=== PATIENT | female | born 1950 | race Two or more races ===

== ENCOUNTER 2016-06-01 19:59 | Emergency (ER) | payer BC ==
[~2016-06-01] VITALS: Ht 157.5 cm; Wt 72.6 kg
[~2016-06-01 19:59] MED LIST: AMLODIPINE BESY10 MG ORAL; CIPRO500 MG PO; GABAPENTIN300 MG ORAL; IBUPROFEN600 MG PO; PHENAZOPYRIDIN200 MG ORAL; TRAMADOL HCL50 MG ORAL
[2016-06-01] MEDS ORDERED: CYCLOBENZAPRINE10 MG ORAL (20:39)
[2016-06-01] MEDS ORDERED: TYLENOL EXTRA500 MG ORAL (20:39)
[2016-06-01] MEDS ORDERED: Ketorolac 30mg Inj IM ONE (20:45)
[2016-06-01] MEDS ORDERED: Cyclobenzaprine 10mg Tab ORAL ONE (20:45)
[2016-06-01 21:32] VITALS: BP 203/99
[2016-06-01 21:37] VITALS: BP 203/99
--- NOTE | 2016-06-02 05:07 | Emergency Room Report ---
History of Present Illness General Chief Complaint: Back Pain-No Injury Source: Patient Present Illness HPI 66-year-old female presents ED complaining of back pain. Pain for the last 3 days. Denies any injury. Notes pain radiating from the right shoulder down to her lower back. Pain as throbbing, 12/01. No other aggravating relieving factors. Denies chest pain or shortness of breath. Notes previous history of back pain. Denies any other associated symptoms Allergies: Coded Allergies: CODEINE (Verified Allergy, Unknown, 03/24/10) Patient History Past Medical History: HTN, GERD Past Surgical History: none Pertinent Family History: none Social History: Denies: alcohol use, drug use, smoking Now: No Immunizations: UTD Reviewed Nursing Documentation: PMH: Agreed, PSxH: Agreed Nursing Documentation-PMH Hx Hypertension: Yes Hx Gastrointestinal Problems: Yes - GERD Hx Neurological Problems: Yes - chronic left ear pain Review of Systems All Other Systems: negative except mentioned in HPI Physical Exam Vital Signs Date Time Temp Pulse Resp B/P Pulse Ox O2 Delivery O2 Flow Rate FiO2 06/01/16 20:18 98.1 87 18 206/109 96 Sp02 EP Interpretation: reviewed, normal General Appearance: no apparent distress, alert, GCS 15, non-toxic Head: normocephalic Eyes: bilateral eye PERRL, bilateral eye normal inspection ENT: hearing grossly normal Neck: full range of motion, supple/symm/no masses Respiratory: chest non-tender, lungs clear, normal breath sounds, speaking full sentences Cardiovascular #1: regular rate, rhythm, no edema Gastrointestinal: normal bowel sounds, non tender, soft, non-distended, no guarding, no rebound Rectal: deferred Genitourinary: no CVA tenderness, no vertebral tenderness Musculoskeletal: normal inspection, other - paraspinal tenderness Neurologic: alert, oriented x3, responsive, motor strength/tone normal, sensory intact, speech normal Psychiatric: normal inspection Skin: normal inspection Lymphatic: normal inspection Medical Decision Making Diagnostic Impression: Primary Impression: Back strain Qualified Codes: S39.012A - Strain of muscle, fascia and tendon of lower back , initial encounter ER Course Hospital Course 66-year-old female presents ED complaining of mid and lower back pain. No evidence of trauma Differential diagnoses include: pyelonephritis, kidney stone, muscle strain, Lspine fracture Clinical course Patient placed on stretcher. After initial history and physical I ordered toradol and flexeril for pain. Upon reassessment patient states pain has improved. Upon review of EMR, patient does not have any visits to ED requesting pain medications. Diagnosis - back pain Stable and discharged to home with prescription for tylenol, Flexeril. Followup with PMD. Return to ED if symptoms recur or worsen Last Vital Signs Date Time Temp Pulse Resp B/P Pulse Ox O2 Delivery O2 Flow Rate FiO2 06/01/16 21:37 98.3 80 14 203/99 97 Status: improved Disposition: HOME, SELF-CARE Condition: Stable Scripts Cyclobenzaprine Hcl* (FLEXERIL*) 10 Mg Tablet 10 MG ORAL TID Y for Muscle Spasm, #20 TAB Prov: GUZMAN CAMPOVERDE M.D. 06/01/16 Acetaminophen* (TYLENOL EXTRA STRENGTH*) 500 Mg Tablet 500 MG ORAL Q8H Y for Prn Headache/Temp > 101, #30 TAB 0 Refills Prov: GUZMAN CAMPOVERDE M.D. 06/01/16 Referrals: [facility],REFERRING (PCP) Patient Instructions: Back Pain, Adult GUZMAN CAMPOVERDE M.D. Jun 02, 2016 05:07
== END 2016-06-01 21:37 | disposition home or self-care (01) ==
LOC: EMR 20:49
DX: S39.012A Strain of muscle, fascia and tendon of lower back, initial encounter (principal); Z88.6 Allergy status to analgesic agent; I10 Essential (primary) hypertension; K21.9 Gastro-esophageal reflux disease without esophagitis; X58.XXXA Exposure to other specified factors, initial encounter; Y92.9 Unspecified place or not applicable; Y99.8 Other external cause status
CPT/HCPCS: 96372; 99283; J1885

== ENCOUNTER 2016-11-20 10:44 | Emergency (ER) | payer BC ==
[~2016-11-20] VITALS: Ht 160 cm; Wt 74.8 kg
[~2016-11-20 10:44] MED LIST changes: +CYCLOBENZAPRINE10 MG ORAL; +TYLENOL EXTRA500 MG ORAL
[2016-11-20] MEDS ORDERED: HYDROCHLOROTH12.5 M2 ORAL (10:58)
[2016-11-20] MEDS ORDERED: Ketorolac 30mg Inj IV ONE (11:15)
[2016-11-20] MEDS ORDERED: DiphenhydrAMINE 50mg/ml Inj IVP ONE (11:15)
[2016-11-20] MEDS ORDERED: Morphine Sulfate 4mg/ml Inj IVP ONE (11:15)
[2016-11-20] MEDS ORDERED: Tubing IV Cassette IV ONE (11:25)
[2016-11-20 11:53] LABS: BASOPHILS % (AUTO) 1.3 % (0.0-2.0); EOSINOPHILS % (AUTO) 0.7 % (0.0-3.0); LYMPHOCYTES % (AUTO) 23.5 % (20.0-45.0); MEAN CORPUSCULAR HEMOGLOBIN 29.2 PG (27.0-31.0); MEAN CORPUSCULAR HGB CONC 33.4 G/DL (32.0-36.0); MEAN CORPUSCULAR VOLUME 88 FL (80-99); MONOCYTES % (AUTO) 5.5 % (1.0-10.0); PLATELET COUNT 207 K/UL (150-450); RED CELL DISTRIBUTION WIDTH 11.9 % (11.6-14.8); WHITE BLOOD COUNT 6.7 K/UL (4.8-10.8)
[2016-11-20 12:04] LABS: INR 0.9 (0.9-1.1); PROTHROMBIN TIME 9.9 SEC (9.30-11.50)
[2016-11-20 12:14] LABS: ALANINE AMINOTRANSFERASE 19 U/L (3-33); ALBUMIN/GLOBULIN RATIO 1.3 (1.0-2.7); ANION GAP 18 (5-15); ASPARTATE AMINO TRANSFERASE 18 U/L (5-40); CALCIUM 9.5 mg/dL (8.6-10.2); CARBON DIOXIDE 26 mEQ/L (20-30); CHLORIDE 96 mEQ/L (98-107); CREATININE 0.6 mg/dL (0.5-0.9); GLOMERULAR FILTRATION RATE > 60 mL/min (>60); HEMOLYSIS 5; LIPASE 38 U/L (< 60); POTASSIUM 3.4 mEQ/L (3.4-4.9); SODIUM 140 mEQ/L (135-145); TOTAL PROTEIN 7.8 g/dL (6.6-8.7)
[2016-11-20 12:30] VITALS: BP 157/63
--- NOTE | 2016-11-20 12:44 | Diagnostic Imaging Report ---
Indication: PAIN Technique: Spiral acquisitions obtained through the abdomen and pelvis. No oral contrast utilized, per emergency room physician request No IV contrast utilized, per referring physician request left lower quadrant abdominal pain radiating to left leg. Multiplanar reconstructions were generated. Total dose length product 916 mGycm. CTDIvol(s) mGy. Dose reduction achieved using automated exposure control Comparison: None Findings: There is left inguinal hernia. This appears to be posterior lateral to the inferior epigastric vessels so is probably a direct inguinal hernia. It contains a knuckle of small bowel. Small bowel proximal to the hernia is mildly dilated and fluid-filled. Small bowel distal to the hernia is collapsed. There is a fluid collection within the hernia that is contiguous with the small bowel. Uncertain as to whether this is part of small bowel or separate from it. Within this collection there is a calcification which measures 17 mm in length. The collection itself measures approximately 4.4 x 3 cm. There is an inguinal hernia on the right which also appears to be medial to the inferior epigastric vessels and is therefore probably direct. It contains a 17 mm diameter fluid collection and also a much smaller calcification which is nonetheless similar to the one on the left side. This calcification measures about 7 mm long axis dimension. There is colonic diverticulosis. No evidence of diverticulitis. The appendix is not definitely demonstrated, but there are no findings to suggest acute appendicitis. No free or loculated intraperitoneal air or, with the exception of the inguinal abnormalities. Lack of IV contrast limits assessment of solid organs. The liver is diffusely hypoattenuating, consistent with fatty change. An area of focal sparing is seen adjacent to the gallbladder fossa. No other focal abnormality is demonstrated. The gallbladder, bile ducts, pancreas, spleen, adrenals are unremarkable. The left kidney demonstrates a 5.5 cm exophytic cyst. Multiple intrarenal calyceal calculi are seen bilaterally. The right kidney demonstrates an upper pole subcentimeter low-attenuation lesion which is too small to characterize. No ureteral calculi, hydronephrosis, or hydroureter demonstrated. No pelvic mass or adenopathy. The included lung bases demonstrate some posterior dependent atelectatic changes. Mild degenerative changes of the lumbar spine are incidentally noted. Impression: Positive for left inguinal hernia, probably a direct type, containing a knuckle of small bowel. There is mild distention of the small bowel proximal to it and collapse of the small bowel distal to it, consistent with mild small bowel obstruction from the hernia. Also present within the hernia sac is a 4.4 cm fluid collection. Uncertain as to whether this is related to the bowel or separate from it although suspect the latter. Inside the fluid collection is very unusual 17 mm long calcification. Significance/etiology of these findings are uncertain. There is a right presumed direct inguinal which does not contain any bowel. It does contain fat and a small fluid collection which appears similar to the fluid collection on the left. This fluid collection contains a calcification which is similar to the calcification on the left. Etiology/significance likewise uncertain Diverticulosis. No evidence of diverticulitis Fatty liver. Small area of focal sparing noted Bilateral nonobstructive intrarenal calculi 5.5 cm left renal cyst. Subcentimeter upper pole right renal low-attenuation lesion, too small to characterize. Most likely benign simple cysts. No further followup necessary Incidental findings as described The CT scanner at [facility] is accredited by the [employer] and the scans are performed using protocols designed to limit radiation exposure to as low as reasonably achievable to attain i -- mages of sufficient resolution adequate for diagnostic evaluation.
[2016-11-20 12:52] LABS: APPEARANCE,URINE CLEAR; KETONES,URINE 1+ (NEGATIVE); LEUKOCYTE ESTERASE ,URINE NEGATIVE (NEGATIVE); NITRITE,URINE NEGATIVE (NEGATIVE); PH,URINE 8 (4.5-8.0); PROTEIN,URINE NEGATIVE (NEGATIVE); UROBILINOGEN,URINE NORMAL MG/DL (0.0-1.0)
--- NOTE | 2016-11-20 13:51 | Emergency Room Report ---
History of Present Illness General Chief Complaint: Abdominal Pain Source: Patient, Medical Record Present Illness HPI Patient has a history kidney stones. Patient presents emergency department today complaining of acute onset of severe left lower quadrant abdominal pain associate nausea. Patient states the pain started over last 24 hours. She denies any fever chest pain short of breath. Denies rectal bleeding or diarrhea. Patient denies any dysuria or frequency or hematuria. Symptoms noted to be severe. No other modifying factors. No other associated signs and symptoms. No other complaints were noted. Allergies: Coded Allergies: CODEINE (Verified Allergy, Unknown, 03/24/10) Patient History Past Medical History: HTN, other - Gerd PMH Narrative kidney stone Past Surgical History: none Pertinent Family History: none Social History: Denies: alcohol use, drug use, smoking Last Menstrual Period: menopause Now: No : 2 Para: 2 Reviewed Nursing Documentation: PMH: Agreed, PSxH: Agreed Nursing Documentation-PMH Past Medical History: No History, Except For Hx Hypertension: Yes Hx Gastrointestinal Problems: Yes - GERD Hx Neurological Problems: Yes - chronic left ear pain Review of Systems All Other Systems: negative except mentioned in HPI Physical Exam Vital Signs Date Time Temp Pulse Resp B/P Pulse Ox O2 Delivery O2 Flow Rate FiO2 11/20/16 10:54 98.2 94 16 184/83 100 Room Air Sp02 EP Interpretation: reviewed, normal General Appearance: alert, moderate distress Head: atraumatic Eyes: bilateral eye normal inspection ENT: normal ENT inspection, hearing grossly normal, normal voice Neck: normal inspection, full range of motion, supple, no bony tend Respiratory: normal inspection, lungs clear, normal breath sounds, no respiratory distress, no retraction, no wheezing Cardiovascular #1: regular rate, rhythm, no edema Gastrointestinal: normal inspection, normal bowel sounds, soft, no guarding, no hernia, other - left lower quadrant and inguinal area Genitourinary: no CVA tenderness Musculoskeletal: normal inspection, back normal, normal range of motion Neurologic: normal inspection, alert, responsive, speech normal Psychiatric: anxious Skin: normal inspection, normal color, no rash Medical Decision Making Diagnostic Impression: Primary Impression: Inguinal hernia of left side with obstruction ER Course Patient presents emergency department today complaining of abdominal pain.Patient presents to the emergency department today complaining of abdominal pain. Differential considerations include acute pancreatitis, cholecystitis, gastritis, hepatitis, l colitis or kidney stone just to name a few. Given the severity of the patient's presentation I felt this is a highly complex patient. This patient required extensive workup. Patient's CT shows evidence of a hernia. On the left inguinal area. Patient required an attempt at reduction. Procedure note: Using pressure with patient and recombinant position Trendelenburg. Gentle pressure was applied to patient's left groin. I was able to reduce much of the hernia. However there still remains evidence of left Swelling despite my attempts. Patient tolerated procedure without difficulty. No other complaints are noted. No complications were noted. Patient symptoms and CT scan findings were concerning and patient will require admission. Case was discussed with Dr. Hany Hyman who is service correspondent for patient's medical group. Case was also discussed with Dr. Candelario Torres from general surgery who will evaluate the patient for hernia repair. Patient will be admitted to [facility] further treatment. Labs Test 11/20/16 11:20 11/20/16 12:45 White Blood Count 6.7 K/UL (4.8-10.8) Red Blood Count 5.10 M/UL (4.20-5.40) Hemoglobin 14.9 G/DL (12.0-16.0) Hematocrit 44.6 % (37.0-47.0) Mean Corpuscular Volume 88 FL (80-99) Mean Corpuscular Hemoglobin 29.2 PG (27.0-31.0) Mean Corpuscular Hemoglobin Concent 33.4 G/DL (32.0-36.0) Red Cell Distribution Width 11.9 % (11.6-14.8) Platelet Count 207 K/UL (150-450) Mean Platelet Volume 8.0 FL (6.5-10.1) Neutrophils (%) (Auto) 69.0 % (45.0-75.0) Lymphocytes (%) (Auto) 23.5 % (20.0-45.0) Monocytes (%) (Auto) 5.5 % (1.0-10.0) Eosinophils (%) (Auto) 0.7 % (0.0-3.0) Basophils (%) (Auto) 1.3 % (0.0-2.0) Prothrombin Time 9.9 SEC (9.30-11.50) Prothromb Time International Ratio 0.9 (0.9-1.1) Activated Partial Thromboplast Time 25 SEC (23-33) Sodium Level 140 mEQ/L (135-145) Potassium Level 3.4 mEQ/L (3.4-4.9) Chloride Level 96 mEQ/L (98-107) Carbon Dioxide Level 26 mEQ/L (20-30) Anion Gap 18 (5-15) Blood Urea Nitrogen 11 mg/dL (7-23) Creatinine 0.6 mg/dL (0.5-0.9) Estimat Glomerular Filtration Rate > 60 mL/min (>60) Glucose Level 164 mg/dL (74-106) Calcium Level 9.5 mg/dL (8.6-10.2) Total Bilirubin 0.6 mg/dL (0.0-1.2) Aspartate Amino Transf (AST/SGOT) 18 U/L (5-40) Alanine Aminotransferase (ALT/SGPT) 19 U/L (3-33) Alkaline Phosphatase 110 U/L (35-104) Total Protein 7.8 g/dL (6.6-8.7) Albumin 4.5 g/dL (3.5-5.2) Globulin 3.3 g/dL Albumin/Globulin Ratio 1.3 (1.0-2.7) Lipase 38 U/L (< 60) Urine Color Pale yellow Urine Appearance Clear Urine pH 8 (4.5-8.0) Urine Specific [place] 1.020 (1.005-1.035) Urine Protein Negative (NEGATIVE) Urine Glucose (UA) Negative (NEGATIVE) Urine Ketones 1+ (NEGATIVE) Urine Occult Blood Negative (NEGATIVE) Urine Nitrite Negative (NEGATIVE) Urine Bilirubin Negative (NEGATIVE) Urine Urobilinogen Normal MG/DL (0.0-1.0) Urine Leukocyte Esterase Negative (NEGATIVE) Last Vital Signs Date Time Temp Pulse Resp B/P Pulse Ox O2 Delivery O2 Flow Rate FiO2 11/20/16 12:30 75 18 157/63 97 Room Air 11/20/16 12:00 98.3 Status: improved Disposition: ADMITTED INPATIENT Condition: Serious Referrals: [facility],REFERRING (PCP) JAVID SARABIA M.D. Nov 20, 2016 13:51
[2016-11-20 14:00] VITALS: BP 140/64
[2016-11-20 16:00] VITALS: BP 140/65
--- NOTE | 2016-11-20 16:42 | Diagnostic Imaging Report ---
Indication: COUGH Technique: One view of the chest Comparison: 03/23/2010 Findings: Lungs and pleural spaces are clear. Heart size is normal. Aorta is tortuous and calcified. No significant change Impression: No acute process
[2016-11-20] MEDS ORDERED: Morphine Sulfate 4mg/ml Inj IVP PRN (17:00)
[2016-11-20] MEDS ORDERED: Morphine Sulfate 2mg/ml Inj IVP PRN (17:00)
[2016-11-20] MEDS ORDERED: TRAMADOL HCL50 MG ORAL (17:33)
--- NOTE | 2016-11-20 17:34 | Consultation ---
Consult Note Assessment/Plan dict inguinal hernias, partially reduced HTN dc home clears Tramadol f/u w PMD for elective surgery return to ED prn severe pain, emesis MARTIN ORONA Nov 20, 2016 17:34
[2016-11-20 17:51] VITALS: BP 140/65
[2016-11-20] MEDS ORDERED: D5NS 1,000 ML IV SCH (18:00)
--- NOTE | 2016-11-20 23:01 | Consultation ---
DATE OF CONSULTATION: 11/20/2016 INTERNAL MEDICINE CONSULTATION TIME SEEN: At 530 hours. CHIEF COMPLAINT: Abdominal pain. HISTORY OF PRESENT ILLNESS: The patient has 12-year history of low-grade pain in the inguinal area, more on the left than the right. She had the onset of acute severe pain for one day with some nausea, but no vomiting over the past 24 hours. She had no fevers. Chills or sweats. She came in the emergency department and was found to have an inguinal hernia that was incarcerated on the left. CT scan showed bilateral femoral hernias. The left-sided hernia was partially reduced with relief of her pain in the emergency department, first by the emergency physician, Dr. Franklin and subsequently by the consulting surgeon who saw her Dr. Torres. PAST MEDICAL HISTORY: Hypertension, acid reflux, kidney stones, menopause, and she has mild hyperglycemia, but did not require treatment. MEDICATIONS: Reviewed. ALLERGIES: Codeine. SOCIAL HISTORY: She has no history of smoking or alcohol abuse. REVIEW OF SYSTEMS: Otherwise unremarkable. PHYSICAL EXAMINATION: GENERAL: The patient is alert and responds appropriately. VITAL SIGNS: Vital signs are normal. She is not in pain at this time. HEENT: The head is normocephalic. She is overweight. NECK: No jugular venous distention. CHEST: Clear. CARDIAC: Rhythm is regular. ABDOMEN: Soft, but nontender. There is mild tenderness in the left groin with small mass palpated in the inguinal area. EXTREMITIES: No clubbing, cyanosis, or edema. LABORATORY AND DIAGNOSTIC DATA: Laboratory studies and imaging studies were reviewed. IMPRESSION: 1. Bilateral inguinal hernias, direct, left greater than right, partially incarcerated and partially reduced. 2. Hypertension. 3. Diverticulosis. 4. Fatty liver. 5. Left renal cyst. 6. Kidney stones. 7. Atelectasis. 8. Degenerative changes lumbar spine. PLAN: The patient was examined by Dr. Torres per General Surgery. He feels it is safe for the patient to go home on clear liquids and pain medication and consult with her primary physician for elective surgery. He does not feel this warrants emergency surgery and in order to feel the patient needs admission to the hospital at this time and the patient was so advised and is in agreement. Prescriptions were given. Thank you. Hany Hyman M.D. DR: ALISA JOB#: [id number] CC:
--- NOTE | 2016-11-21 10:15 | Consultation ---
DATE OF CONSULTATION: 11/20/2016 SURGICAL CONSULTATION CONSULTING PHYSICIAN: Candelario Torres M.D. ATTENDING PHYSICIAN: Hany Hyman M.D. PERTINENT HISTORY: The patient is a pleasant 66-year-old, heavyset Latin female, who had history of acute episode of left flank and left abdominal pain, radiating down into the groin and down to the knee. The emergency room physician noted that she left inguinal area bulge and a CT confirmed a partially incarcerated left groin hernia, as well as a smaller right groin hernia. Dr. Franklin in the emergency room was able to reduce it most when I came in to see the patient to make sure that she was okay and did not require emergency surgery. By the time, I arrived, she felt "a lot better." The pain was gone and she was very comfortable even with standing. PAST MEDICAL HISTORY: History of hypertension and elevated cholesterol. MEDICATIONS: Amlodipine and aspirin. ALLERGIES: None known. REVIEW OF SYSTEMS: HEENT: No headaches, tinnitus, or dysphagia. Cardiopulmonary: No history of chest pain, shortness of breath, cough, or sputum. Gastrointestinal: No nausea or vomiting. No diarrhea or constipation. She has had bowel movement up until today. PHYSICAL EXAMINATION: VITAL SIGNS: Blood pressure is 138/76, respirations 18, temperature 98 degrees, and pulse is 72 and regular. GENERAL: The patient is a well-developed, well-nourished, middle-aged Latin female, in no distress. HEENT: Exam was normal. NECK: Supple. LUNGS: Clear. HEART: Rhythmic and regular. ABDOMEN: Obese and soft. Bowel sounds are normoactive. There is a left femoral hernia, which I can reduce almost all the way , which is chronic incarceration the patient said that she has had for approximately nine years. On the right side, there is a tiny palpable femoral hernia also. IMPRESSION: 1. Left femoral hernia with incarceration - obstruction, now resolved after reduction. 2. Right femoral hernia, on CT. 3. History of kidney stones. 4. Hypertension. PLAN: The patient was examined together with Dr. Hany Hyman, who agreed that she could go home and thus she will start on liquids here at the hospital and then go home on a soft diet. Follow up early next week at [facility] by her primary physician, so that planning for repair of hernia could be done. Candelario Torres M.D. DR: Josephine JOB#: [id number] CC:
--- NOTE | 2016-11-21 18:45 | Cardiology Report ---
APPROVED REPORT EKG Measurement Heart [id number] Normal sinus rhythm Normal ECG
== END 2016-11-20 17:51 | disposition home or self-care (01) ==
LOC: EMR 11:32 → EDBEDREQ 17:32 → EMR 17:51
DX: K40.00 Bilateral inguinal hernia, with obstruction, without gangrene, not specified as recurrent (principal); K21.9 Gastro-esophageal reflux disease without esophagitis; K76.0 Fatty (change of) liver, not elsewhere classified; I10 Essential (primary) hypertension; K57.30 Diverticulosis of large intestine without perforation or abscess without bleeding; N20.0 Calculus of kidney; N28.1 Cyst of kidney, acquired; J98.11 Atelectasis; Z88.6 Allergy status to analgesic agent; Z87.442 Personal history of urinary calculi
CPT/HCPCS: 36415; 71010; 74176; 80053; 81003; 83690; 85025; 85610; 85730; 93005; 96360; 96374; 96375; 99284; J1200; J1885; J2270; J2405

== ENCOUNTER 2017-01-25 20:43 | Emergency (ER) | payer BC ==
[~2017-01-25] VITALS: Ht 157.5 cm; Wt 68.5 kg
[~2017-01-25 20:43] MED LIST changes: +HYDROCHLOROTH12.5 M2 ORAL
[2017-01-25] MEDS ORDERED: HYDROmorphone 1mg/ml Carpuject IVP ONE (21:15)
[2017-01-25 21:32] VITALS: BP 143/61
[2017-01-25] MEDS ORDERED: HYDROCODON-ACE1 EA15 ORAL (22:21)
--- NOTE | 2017-01-25 22:21 | Emergency Room Report ---
History of Present Illness General Chief Complaint: Abdominal Pain Source: Patient, Family Member Present Illness HPI This is a pleasant 66-year-old female with a history of angina hernia. She scheduled for surgery on February 12. She presents with chief complaint of left inguinal/lower quadrant pain for last 2 hours. More so than before. Nauseous but no vomiting. No fever or chills. Denies any trauma. Nothing made it better. Movement made it worse. Allergies: Coded Allergies: CODEINE (Verified Allergy, Unknown, 03/24/10) Patient History Past Medical History: see triage record, old chart reviewed Past Surgical History: other Pertinent Family History: none Social History: Denies: smoking Now: No Immunizations: other Reviewed Nursing Documentation: PMH: Agreed, PSxH: Agreed Nursing Documentation-PMH Hx Hypertension: Yes Hx Gastrointestinal Problems: Yes - GERD Hx Neurological Problems: Yes - chronic left ear pain Review of Systems Eye: Denies: eye pain, blurred vision ENT: Denies: ear pain, nose congestion, throat swelling Respiratory: Denies: cough, shortness of breath Cardiovascular: Denies: chest pain, palpitations Gastrointestinal: Reports: abdominal pain, nausea, Denies: diarrhea, vomiting Musculoskeletal: Denies: back pain, joint pain Skin: Denies: rash Neurological: Denies: headache, numbness Endocrine: Denies: increased thirst, increased urine Hematologic/Lymphatic: Denies: easy bruising All Other Systems: negative except mentioned in HPI Physical Exam Vital Signs Date Time Temp Pulse Resp B/P (MAP) Pulse Ox O2 Delivery O2 Flow Rate FiO2 01/25/17 21:09 96.3 82 17 175/62 98 Room Air vitals with high blood pressure Sp02 EP Interpretation: reviewed, normal General Appearance: well appearing, no apparent distress, alert Head: normocephalic, atraumatic Eyes: bilateral eye PERRL, bilateral eye EOMI ENT: hearing grossly normal, normal pharynx Neck: full range of motion, supple, no meningismus Respiratory: chest non-tender, lungs clear, normal breath sounds Cardiovascular #1: regular rate, rhythm, no murmur Gastrointestinal: normal bowel sounds, non tender, no mass, no organomegaly, no bruit, non-distended, other - She has a baseball size left and the hernia. Tender to palpation. Musculoskeletal: back normal, gait/station normal, normal range of motion Neurologic: alert, oriented x3 Psychiatric: mood/affect normal Skin: warm/dry Procedures Additional Procedure Procedure Narrative Procedure: Reduction of hernia Indication: Incarcerated hernia Description: After giving patient a milligram of Dilaudid for pain, I push on the hernia gently. It reduced without any difficulty. Patient tolerated procedure without a problem. She felt better. Medical Decision Making Diagnostic Impression: Primary Impression: Incarcerated inguinal hernia, unilateral ER Course Patient presents with incarcerated inguinal hernia. Reduced. No evidence of stimulation. We'll discharge home. High blood pressure secondary to pain. Last Vital Signs Date Time Temp Pulse Resp B/P (MAP) Pulse Ox O2 Delivery O2 Flow Rate FiO2 01/25/17 22:04 98.1 01/25/17 21:09 82 17 175/62 98 Room Air Status: improved Disposition: HOME, SELF-CARE Condition: Stable Scripts Hydrocodone/Acetaminophen 5-325* (HYDROCODONE/ACETAMINOPHEN 5-325*) 1 Each Tablet 1 TAB ORAL Q6H Y for For Pain, #15 TAB 0 Refills Prov: DELFIN CEE M.D. 01/25/17 Additional Instructions: Followup with your DrJulian as scheduled. Return if symptom worsen. DELFIN CEE M.D. Jan 25, 2017 22:21
== END 2017-01-25 22:30 | disposition home or self-care (01) ==
LOC: EMR 21:30
DX: K40.90 Unilateral inguinal hernia, without obstruction or gangrene, not specified as recurrent (principal); K21.9 Gastro-esophageal reflux disease without esophagitis; I10 Essential (primary) hypertension; Z88.6 Allergy status to analgesic agent
CPT/HCPCS: 96374; 96375; 99284; J1170; J2405

== ENCOUNTER 2019-11-27 09:13 | Emergency (ER) | payer BC ==
[~2019-11-27] VITALS: Ht 157.5 cm; Wt 66.7 kg
[~2019-11-27 09:13] MED LIST changes: +HYDROCODON-ACE1 EA15 ORAL
--- NOTE | 2019-11-27 09:40 | NUR ---
ED Nurse Note: Pt ambulated to ED from home d/t headache started since yesterday. Pt is AOx4, calm and cooperative. VSS noted BP at triage: 158/74; afebrile on triage. Placed on bed, ERMD at bedside. Pt denies any dizziness nor vomiting.
[2019-11-27] MEDS ORDERED: Acetaminophen 500mg (ES) tab PO ONE (09:45)
[2019-11-27 09:58] VITALS: BP 155/84
--- NOTE | 2019-11-27 10:02 | Diagnostic Imaging Report ---
EXAM: CT Head Without Intravenous Contrast CLINICAL HISTORY: H/A TECHNIQUE: Axial computed tomography images of the head/brain without intravenous contrast. CTDI is 53.4 mGy and DLP is 1018.8 mGy-cm. One or more of the following dose reduction techniques were used: automated exposure control, adjustment of the mA and/or kV according to patient size, use of iterative reconstruction technique. COMPARISON: Head CT July 02, 2010 FINDINGS: There is no acute intracranial hemorrhage. The [place]-white matter differentiation is maintained throughout. There is no midline shift or other mass effect. Cavum septum pellucidum, again noted. The ventricles and sulci are commensurate with age. There is age-related cerebral volume loss. There is nonspecific white matter hypoattenuation, indicative of chronic ischemic microangiopathy. The visualized orbits appear grossly unremarkable. The calvarium is intact. The visualized paranasal sinuses and mastoid air cells are grossly clear. IMPRESSION: No acute intracranial hemorrhage, midline shift, or mass effect.
--- NOTE | 2019-11-27 10:50 | NUR ---
ED Nurse Note: ERMD at bedside.
[2019-11-27] MEDS ORDERED: TYLENOL EXTRA500 MG ORAL (10:58)
[2019-11-27 11:03] VITALS: BP 148/82
--- NOTE | 2019-11-27 11:03 | NUR ---
ER DISCHARGE NOTE: Patient is cleared to be discharged per ERMD, pt is aox4, on room air, with stable vital signs. pt was given dc and prescription instructions, pt was able to verbalize understanding, pt id band removed. pt is able to ambulate with steady gait. pt took all belongings.
--- NOTE | 2019-11-27 11:27 | Emergency Room Report ---
History of Present Illness General Chief Complaint: Headache Source: Patient, Medical Record Present Illness HPI 69-year-old female presents with headache. States that a few weeks ago she hit her head against a wooden object. Denies LOC but states she has been having persistent headaches and dizziness since then. Pain is dull, 7 out of 10, nonradiating. Unrelieved with [id number] medications. Occasional blurry vision. Denies photophobia. Denies neck pain or neck stiffness. No other aggravating relieving factors. Denies any other associated symptoms Allergies: Coded Allergies: CODEINE (Verified Allergy, Unknown, 03/24/10) COVID-19 Screening Contact w/high risk pt: No Recent Travel to affected area: No Experienced COVID-19 symptoms?: No COVID-19 Testing performed BATCH TRUCKER: No Patient History Past Medical History: HTN, GERD Past Surgical History: none Pertinent Family History: none Social History: Denies: smoking, alcohol use, drug use Now: No Immunizations: UTD Reviewed Nursing Documentation: PMH: Agreed; PSxH: Agreed Nursing Documentation-PMH Past Medical History: No History, Except For Hx Hypertension: Yes Hx Gastrointestinal Problems: Yes - GERD Hx Neurological Problems: Yes - chronic left ear pain Review of Systems All Other Systems: negative except mentioned in HPI Physical Exam Vital Signs Date Time Temp Pulse Resp B/P (MAP) Pulse Ox O2 Delivery O2 Flow Rate FiO2 7/20 09:20 98.2 70 18 155/84 (107) 96 Room Air Sp02 EP Interpretation: reviewed, normal General Appearance: no apparent distress, alert, GCS 15, non-toxic Head: normocephalic, atraumatic Eyes: bilateral eye normal inspection, bilateral eye PERRL, bilateral eye EOMI , bilateral eye visual acuity ENT: hearing grossly normal, normal pharynx, no angioedema, normal voice Neck: full range of motion, no meningismus, supple/symm/no masses Respiratory: chest non-tender, lungs clear, normal breath sounds, speaking full sentences Cardiovascular #1: regular rate, rhythm, no edema Cardiovascular #2: 2+ carotid (R), 2+ carotid (L), 2+ radial (R), 2+ radial (L) , 2+ dorsalis pedis (R), 2+ dorsalis pedis (L) Gastrointestinal: normal bowel sounds, non tender, soft, non-distended, no guarding, no rebound Rectal: deferred Genitourinary: normal inspection, no CVA tenderness Musculoskeletal: back normal, normal range of motion, gait/station normal, non- tender Neurologic: alert, motor strength/tone normal, oriented x3, sensory intact, responsive, speech normal Psychiatric: judgement/insight normal, memory normal, mood/affect normal, no suicidal/homicidal ideation Reflexes: 3+ bicep (R), 3+ bicep (L), 3+ tricep (R), 3+ tricep (L), 3+ knee (R) , 3+ knee (L) Skin: no rash Lymphatic: no adenopathy Medical Decision Making Diagnostic Impression: Primary Impression: Head injury Qualified Codes: S09.90XA - Unspecified injury of head, initial encounter ER Course Hospital Course 69-year-old female presents with headache with dizziness since head injury a few weeks ago Differential diagnoses include: skull fx, intracranial injury, concussion Clinical course Patient placed on stretcher. After initial history and physical I ordered CT head and pain medications CT head shows no acute process. I discussed findings with patient. Likely concussion. No focal deficits. Headache resolved. Safe for discharge for close outpatient follow-up. Diagnosis - head injury Stable and discharged to home with Rx Tylenol. Followup with PMD. Return to ED if symptoms recur or worsen CT/MRI/US Diagnostic Results CT/MRI/US Diagnostic Results : Imaging Test Ordered: CT HEad Impression COMPARISON: Head CT July 02, 2010 FINDINGS: There is no acute intracranial hemorrhage. The territorial radford-white matter differentiation is maintained throughout. There is no midline shift or other mass effect. Cavum septum pellucidum, again noted. The ventricles and sulci are commensurate with age. There is age-related cerebral volume loss. There is nonspecific white matter hypoattenuation, indicative of chronic ischemic microangiopathy. The visualized orbits appear grossly unremarkable. The calvarium is intact. The visualized paranasal sinuses and mastoid air cells are grossly clear. IMPRESSION: No acute intracranial hemorrhage, midline shift, or mass effect. Last Vital Signs Date Time Temp Pulse Resp B/P (MAP) Pulse Ox O2 Delivery O2 Flow Rate FiO2 11/27/19 11:03 98.2 76 18 148/82 100 Room Air Status: improved Disposition: HOME, SELF-CARE Condition: Stable Scripts Acetaminophen* (TYLENOL EXTRA STRENGTH*) 500 Mg Tablet 500 MG ORAL Q8H PRN for Prn Headache/Temp > 101, #30 TAB 0 Refills Prov: Yousif Mckinney MD 11/27/19 Referrals: NON PHYSICIAN (PCP) Landry Sullivan [facility] Patient Instructions: Post-Concussion Syndrome, [id number] Yousif Mckinney MD Nov 27, 2019 11:27
== END 2019-11-27 11:03 | disposition home or self-care (01) ==
LOC: EMR 09:57
DX: S09.90XA Unspecified injury of head, initial encounter (principal); W22.8XXA Striking against or struck by other objects, initial encounter; Y92.9 Unspecified place or not applicable; I10 Essential (primary) hypertension; K21.9 Gastro-esophageal reflux disease without esophagitis; Z88.6 Allergy status to analgesic agent
CPT/HCPCS: 70450; 99284